=== PATIENT | male | born 1990 | race Caucasian/White ===

== ENCOUNTER → 2018-03-15 | Outpatient (CLI) | payer BC ==
[~2018-03-15] MED LIST: ACHD5005 PO; ALLEGRA OTC; ONDA4TAB8 PO
--- NOTE | 2018-03-15 15:07 | Diagnostic Imaging Report ---
EXAMINATION: Scrotal ultrasound. INDICATION: Lump on left testicle. FINDINGS: There are no prior studies available for comparison. Spectral and color-flow imaging was performed. Both testicles are identified. The right testicle measures 5.0 x 2.7 x 3.3 cm while the left testicle is estimated to be 4.9 x 2.8 x 3.3 cm. There is no evidence for a solid testicular mass and there is no sign of torsion. Along the lateral margin of the inferior pole of the left testicle, there is a well-circumscribed 5 x 4 x 5 mm vascular structure. This is of uncertain etiology but may represent an enlarged vein. A urologic consult will be recommended. There is no evidence for epididymitis. There is no significant hydrocele formation and there is no sign of a varicocele. IMPRESSION: 1. There is no evidence for a solid testicular mass or for torsion. 2. There is a small focal vascular mass along the lateral margin of the inferior half of the left testicle. This is of uncertain etiology. A urologic consult will be recommended. Dictated by: Dictated on workstation # [id number]
== END ==
LOC: RAD 10:27
PROVIDERS: ATTEND Physician Assistant
DX: N50.89 Other specified disorders of the male genital organs (principal)
CPT/HCPCS: 76870